=== PATIENT | male | born 1975 | race American Indian/Alaskan Native ===

== ENCOUNTER 2021-01-06 06:07 | Emergency (ER) | payer OTHER ==
[2021-01-06 06:50] VITALS: BP 158/85
--- NOTE | 2021-01-06 08:13 | Emergency Department Report ---
Minor Respiratory - HPI Chief Complaint: Upper Respiratory Infection Stated Complaint: SIMA Time Seen by Provider: 01/06/21 08:11 Duration: 3 Days Pain Location: Chest Severity: mild Minor Respiratory: Yes Able to Tolerate Fluids, Yes Chest Pain, Yes Shortness of Breath, No Rhinorrhea, No Sore Throat, No Ear Pain, No Cough, No Sick Contacts, No Hemoptysis, No Fever Other History: 45 YO AA MALE COMES TO ER WITH SIMA AND CP. MADE HIM COME TO GET CHECKED FOR COVID. NO FEVER OR CHILLS. NO HOME MEDS. DENIES DRUGS OR ETOH OR THC ED Review of Systems ROS: Stated complaint: SIMA Other details as noted in HPI Comment: All other systems reviewed and negative ED Past Medical Hx - Past Medical History Previous Medical History?: No - Surgical History Past Surgical History?: No - Family History Family history: no significant - Social History Smoking Status: Former Smoker Substance Use Type: None Minor Respiratory Exam - Exam General: Vital signs noted. No distress. Alert and acting appropriately. HEENT: Yes Moist Mucous Membranes, No Pharyngeal Erythema, No Pharyngeal Exud ates, No Rhinorrhea, No Conjuctival Injection, No Frontal Tenderness, No Maxillary Tenderness Ear: Neither TM Bulge, Neither TM Erythema, Neither EAC Pain, Neither EAC Discharge Neck: Yes Supple, No Adenopathy Lungs: Yes Good Air Exchange, No Wheezes, No Ronchi, No Stridor, No Cough, No Labored Respirations, No Retractions, No Use of Accessory Muscles, No Other Abnormal Lung Sounds Heart: Yes Regular, No Murmur Abdomen: Yes Normal Bowel Sounds, No Tenderness, No Peritoneal Signs Skin: No Rash, No Edema Neurologic: Alert and oriented, no deficits. Musculoskeletal: Unremarkable. ED Course Vital Signs 01/06/21 06:10 Temperature 98.2 F Pulse Rate 50 L Respiratory 18 Rate Blood Pressure 158/85 O2 Sat by Pulse 96 Oximetry ED Medical Decision Making - Lab Data Result diagrams: 01/06/21 09:25 01/06/21 09:25 - EKG Data EKG shows normal: sinus rhythm Rate: bradycardia - EKG Data 01/06/21 11:02 WE HAVE NO HX OF PT BEING HERE FOR BASELINE - Radiology Data Radiology results: report reviewed, image reviewed NAP - Medical Decision Making Labs 01/06/21 01/06/21 01/06/21 09:25 09:25 09:29 WBC 6.2 RBC 5.56 H Hgb 16.0 H Hct 46.9 H MCV 85 MCH 29 MCHC 34 RDW 16.5 H Plt Count 211 Sodium 135 L Potassium 4.2 Chloride 99.3 Carbon Dioxide 29 Anion Gap 11 BUN 12 Creatinine 0.8 Estimated GFR > 60 BUN/Creatinine Ratio 15 Glucose 139 H Calcium 9.3 Total Bilirubin 0.20 AST 24 ALT 28 Alkaline Phosphatase 60 Troponin T < 0.010 Total Protein 6.8 Albumin 3.9 Albumin/Globulin Ratio 1.3 Lipase 35 Urine Color Yellow Urine Turbidity Clear Urine pH 5.0 Ur Specific [place] 1.016 Urine Protein <15 mg/dl Urine Glucose (UA) Neg Urine Ketones Neg Urine Blood Neg Urine Nitrite Neg Urine Bilirubin Neg Urine Urobilinogen < 2.0 Ur Leukocyte Esterase Neg Urine WBC (Auto) < 1.0 Urine RBC (Auto) 1.0 Urine Mucus Few Vital Signs 01/06/21 06:10 Temperature 98.2 F Pulse Rate 50 L Respiratory 18 Rate Blood Pressure 158/85 O2 Sat by Pulse 96 Oximetry HR ON 12 LEAD 48-- ON NO RATE LOWERING MEDS THC IN URINE PT LEFT ER--- - Differential Diagnosis ACS/URI Critical care attestation.: If time is entered above; I have spent that time in minutes in the direct care of this critically ill patient, excluding procedure time. ED Disposition Clinical Impression: Bradycardia, Shortness of breath Disposition: Z-07 ELOPED Is pt being admited?: No Does the pt Need Aspirin: No Condition: Stable Referrals: PRIMARY CARE, [Primary Care Provider] - 3-5 Days Time of Disposition: 11:01
[2021-01-06 09:48] LABS: Hematocrit 46.9 % (35.5-45.6); Mean Corpuscular HGB Conc 34 % (32-34); Mean Corpuscular Volume 85 fl (84-94); Platelet Count 211 K/mm3 (140-440); Red Blood Count 5.56 M/mm3 (3.65-5.03); Red Cell Distribution Width 16.5 % (13.2-15.2)
[2021-01-06 09:54] LABS: Bilirubin,Urine NEG (Negative); Blood,Urine NEG (Negative); Color,Urine Yellow (Yellow); Mucus,Urine FEW /HPF; Protein,Urine <15 mg/dL mg/dL (Negative); Urobilinogen,Urine < 2.0 mg/dL (<2.0); WBC,Urine < 1.0 /HPF (0.0-6.0)
[2021-01-06 10:14] LABS: Alanine Aminotransferase 28 units/L (7-56); Albumin 3.9 g/dL (3.9-5); BUN/Creatinine Ratio 15; Blood Urea Nitrogen 12 mg/dL (9-20); Calcium 9.3 mg/dL (8.4-10.2); Hemolysis Index 21
--- NOTE | 2021-01-06 10:35 | XRay Report ---
XR chest routine 2V INDICATION / CLINICAL INFORMATION: sob. COMPARISON: None available. FINDINGS: SUPPORT DEVICES: None. HEART /PULMONARY VASCULATURE: No significant abnormality. LUNGS / PLEURA: There is elevated right hemidiaphragm with mild streaky bibasilar opacities, favoring atelectasis. Otherwise, no focal airspace consolidation. No pleural effusion. No pneumothorax. ADDITIONAL FINDINGS: No significant additional findings. IMPRESSION: Low lung volumes with bibasilar volume loss. No acute chest process identified. Signer Name: Hardeep Da Silva MD Signed: 01/06/2021 10:30 AM Workstation Name: [id number]
--- NOTE | 2021-01-07 14:40 | Electrocardiograph Report ---
[facility] Test Date: 2021-01-06 Test Time: 10:29:42 Pat Name: DIXON CLINE Department: Room: Gender: M Business Support Coordinator: DARRELL : 1975 Requested By: TOBIN VAZQUEZ Order Number: [id number] Reading MD: Ana Maria Lora Measurements Intervals [place] Rate: 48 P: 37 UT: 143 QRS: -17 QRSD: 106 T: 8 QT: 454 QTc: 406 Interpretive Statements Sinus bradycardia Left ventricular hypertrophy No previous ECG available for comparison Electronically Signed On 01-07-2021 14:39:56 EDT by Ana Maria Lora
== END 2021-01-06 10:55 | disposition left against medical advice (07) ==
LOC: ED 06:07
DX: R00.1 Bradycardia, unspecified (principal); R06.02 Shortness of breath; Z87.891 Personal history of nicotine dependence
CPT/HCPCS: 36415; 71046; 80053; 81001; 83690; 84484; 85027; 93005